=== PATIENT | male | born 1960 | race Caucasian/White ===

== ENCOUNTER 2025-08-15 09:08 | Emergency (ER) | payer MEDICARE, OTHER ==
[~2025-08-15] VITALS: Ht 177.8 cm; Wt 89.4 kg
[2025-08-15] MEDS ORDERED: FAMO40TA3 (09:21)
[2025-08-15] MEDS ORDERED: TAMS1CAP17 (09:21)
[2025-08-15] MEDS ORDERED: APRE30TA3 (09:21)
[2025-08-15 11:31] LABS: BASO # 0.0 10^3/uL (0.0-0.2); BASO % 0.6 % (0.0-1.0); EOS # 0.0 10^3/uL (0.0-0.5); EOS % 1.1 % (0.0-3.0); LYMPH # 1.2 10^3/uL (1.5-5.0); LYMPH % 34.7 % (24.0-44.0); MONO # 0.3 10^3/uL (0.0-0.8); MONO % 9.7 % (2.0-8.0); NEUTROPHILS # 1.9 10^3/uL (1.5-8.5); NEUTROPHILS % 53.6 % (36.0-66.0); PLATELET COUNT, AUTOMATED 184 10^3/uL (150-450)
[2025-08-15] MEDS ORDERED: ISOVUE-370 76% 100 ML VIAL As Ordered ONE (11:32)
[2025-08-15 11:56] LABS: INR 0.96
[2025-08-15 11:57] LABS: ALT/SGPT 25 U/L (7.0-40); AST/SGOT 27 U/L (<34); CK-MB VALUE MASS < 1.0 NG/ML (<3.6); CPK CREATINE PHOSPHOKINASE 61 U/L (46-171)
[2025-08-15] MEDS: KETOROLAC 30 MG/ML 1 ML VIAL IV ONE (12:34)
[2025-08-15 12:50] VITALS: TEMP 97.9
[2025-08-15 13:00] VITALS: BP 119/66; O2SAT 99
== END 2025-08-15 13:30 | disposition home or self-care (01) ==
LOC: M ED 09:08
DX: M54.6 Pain in thoracic spine (principal); R00.1 Bradycardia, unspecified; K21.9 Gastro-esophageal reflux disease without esophagitis; F17.200 Nicotine dependence, unspecified, uncomplicated; Z79.899 Other long term (current) drug therapy
CPT/HCPCS: 71275; 80047; 80076; 82550; 82553; 83690; 84484; 85025; 85610; 85730; 93005; 96374; 99284; J1885; Q9967